=== PATIENT | male | born 1950 | race Caucasian/White ===

== ENCOUNTER 2023-01-18 00:59 | Observation (INO) | payer MEDICARE, OTHER ==
[2023-01-18] VITALS (11 sets, daily range): BP systolic 118–160; BP diastolic 59–72
[~2023-01-18] VITALS: Ht 170.2 cm; Wt 108.5 kg
[2023-01-18] MEDS ORDERED: normal saline 1000ML IV soln IVB ONE (01:25)
[2023-01-18] MEDS ORDERED: normal saline 1000ml 1,000 ML IV ONE (01:25)
[2023-01-18] MEDS ORDERED: nitroGLYCERIN 0.2mg/hour patch TD ONE (01:25)
[2023-01-18] MEDS ORDERED: morphine 4 MG/ML inj SYRINge IV ONE (01:25)
[2023-01-18 01:27] LABS: BASOPHILS # (AUTO) 0.1 X10'3 (0-0.2); BASOPHILS % (AUTO) 0.5 % (0-1); EOSINOPHILS # (AUTO) 0.8 X10'3 (0-0.9); EOSINOPHILS % (AUTO) 5.7 % (0-6); HEMATOCRIT 49.4 % (42.0-52.0); HEMOGLOBIN 16.6 g/dl (14.0-17.9); LYMPHOCYTES # (AUTO) 3.5 X10'3 (1.1-4.8); LYMPHOCYTES % (AUTO) 25.3 % (21-51); MEAN CORPUSCULAR HEMOGLOBIN 30.4 PG (27.0-31.0); MEAN CORPUSCULAR HGB CONC 33.7 g/dL (33.0-36.5); MEAN CORPUSCULAR VOLUME 90.2 FL (78-98); MEAN PLATELET VOLUME 9.8 FL (7.4-10.4); MONOCYTES % (AUTO) 7.1 % (2-12); NEUTROPHILS # (AUTO) 8.5 X10'3 (1.8-7.7); NEUTROPHILS % (AUTO) 61.4 % (42-75); PLATELET COUNT 208 X10'3 (140-440); RED BLOOD COUNT 5.48 X10'6 (4.70-6.10); RED CELL DISTRIBUTION WIDTH 14.8 % (11.5-14.5); WHITE BLOOD COUNT 13.8 X10'3 (4.5-11.0)
[2023-01-18 01:37] LABS: ALANINE AMINOTRANSFERASE 22 U/L (12-78); ALBUMIN 4.2 G/DL (3.4-5.0); ALBUMIN/GLOBULIN RATIO 1.3 (1.1-1.5); ALKALINE PHOSPHATASE 80 IU/L (46-116); ANION GAP 8 (8-16); ASPARTATE AMINO TRANSFERASE 23 U/L (10-37); BILIRUBIN,TOTAL 0.8 MG/DL (0.1-1.0); BLOOD UREA NITROGEN 21 MG/DL (7-18); BUN/CREATININE RATIO 16.3 (5.4-32.0); CALCIUM 9.9 MG/DL (8.5-10.1); CHLORIDE 104 MMOL/L (99-107); CREATININE 1.29 MG/DL (0.60-1.10); GLUCOSE 120 MG/DL (70-104); POTASSIUM 3.8 MMOL/L (3.5-5.1); SODIUM 142 MMOL/L (135-145); TOTAL PROTEIN 7.5 G/DL (6.4-8.2); eGFR 55 ML/MIN
[2023-01-18 01:46] LABS: LIPASE 93 U/L (73-393); MAGNESIUM 2.3 MG/DL (1.5-2.4)
--- NOTE | 2023-01-18 01:56 | NUR ---
Starr ramseysheila in EDM - 01/18/23 at 0209 by RAMÍREZ Rec verbal order from Dr Devin soares go ahead and give the other 2mg of Morphine IVP for pt c/o CP radiating around to mid back 08/16. Additional Morphine 2mg IVP administered with Zach hooker RN as jh
[2023-01-18] MEDS ORDERED: morphine 2 MG/ML inj. syringe IV ONE (02:00)
--- NOTE | 2023-01-18 02:09 | NUR ---
Dr Beltran placed order for additional 2mg of Morphine for c/o Chest Pain 08/16. Dr Beltran placed order for MS 2mg IVP, administered as directed.
[2023-01-18 03:29] LABS: APTT 27 SECONDS (22-32)
[2023-01-18] MEDS ORDERED: potassium Cl 20 mEq SR tablet PO PRN ×2 (05:05)
[2023-01-18] MEDS ORDERED: ondansetron/PF 4mg/2ml inj IV PRN (05:05)
[2023-01-18] MEDS ORDERED: magnesium 4gm in 100ml NS 100 ML IV PRN (05:05)
[2023-01-18] MEDS ORDERED: PERFLUTREN PROTEIN-A MICROSPHR (Optison) 0.22 MG/ML 3ML VIAL IV ONE (05:05)
[2023-01-18] MEDS ORDERED: magnesium hydroxide 30ml (MOM) UD suspension PO PRN (05:05)
[2023-01-18] MEDS ORDERED: mag hydrox/Alum hydrox/simeth 30ml oral suspension PO PRN (05:05)
[2023-01-18] MEDS ORDERED: acetaminophen 325mg tablet PO PRN (05:05)
[2023-01-18] MEDS ORDERED: potassium Cl 40MEQ/1/2NS 520ml 520 ML IV PRN (05:05)
[2023-01-18] MEDS ORDERED: magnesium Cl slow-release 64mg tablet PO PRN (05:05)
[2023-01-18] MEDS ORDERED: morphine 2 MG/ML inj. syringe IV PRN (05:05)
[2023-01-18] MEDS ORDERED: metoprolol tartrate 1mg/ml inj IV PRN (05:10)
[2023-01-18] MEDS ORDERED: regadenoson 0.4mg/5ml syringe IV PRN (05:10)
[2023-01-18] MEDS ORDERED: aminophylline 250mg/10ml inj. IV PRN (05:10)
[2023-01-18] MEDS ORDERED: nitroGLYCERIN 0.4mg SUBLingual tab SL PRN (05:10)
[2023-01-18] MEDS ORDERED: FAMO40TA73 PO (05:40)
[2023-01-18] MEDS ORDERED: APIX5TAB3 PO (05:43)
[2023-01-18] MEDS ORDERED: ATOR40TA72 PO (05:43)
[2023-01-18] MEDS ORDERED: CARV-50 PO (05:43)
[2023-01-18] MEDS ORDERED: HYDR12.55 PO (05:43)
[2023-01-18] MEDS ORDERED: LOSA100T57 PO (05:43)
[2023-01-18] MEDS ORDERED: famotidine 20mg tablet PO PRN (05:50)
[2023-01-18] MEDS: carVEDilol 12.5mg tablet PO SCH ×3 (05:50→20:20)
[2023-01-18 07:27] LABS: POTASSIUM 3.6 MMOL/L (3.5-5.1)
--- NOTE | 2023-01-18 09:06 | NUR ---
pt was about to be taken to stress test at this time, when pt was found sitting up on edge of bed and was hypotensive, bradycardic and diaphoretic. MD Keith was notified and Pt bgl was taken, 123 at this time, upon laying back down, pt HR returned to 70's and B/P improved. verbal order was taken for 500ml bolus of NS at this time and patient was assessed to ensure no nitro patches remained on pt skin.
[2023-01-18] MEDS: docusate sod 100mg capsule PO SCH ×2 (09:11→20:20)
[2023-01-18] MEDS: K and/or MAG REPLACEMENT MC SCH ×2 (09:50→20:20)
--- NOTE | 2023-01-18 09:57 | NUR ---
Ultrasound at bedside.
[2023-01-18] MEDS: apixaban 5mg tablet PO SCH ×2 (10:18→20:20)
[2023-01-18] MEDS: atorvastatin 20mg tablet PO SCH (10:18)
[2023-01-18] MEDS: HYDROchlorothiazide 12.5mg capsule PO SCH ×2 (10:18→20:00)
[2023-01-18] MEDS: losartan 50mg tablet PO SCH (10:24)
--- NOTE | 2023-01-18 10:25 | NUR ---
pt to cardiac stress test at this time.
--- NOTE | 2023-01-18 12:57 | NUR ---
pt just returned to ED rm 3 at this time and placed back on monitor.
[2023-01-19 02:00] VITALS: BP 128/62
[2023-01-19 06:47] LABS: BASOPHILS % (AUTO) 0.3 % (0-1); EOSINOPHILS # (AUTO) 0.3 X10'3 (0-0.9); EOSINOPHILS % (AUTO) 2.4 % (0-6); HEMATOCRIT 42.7 % (42.0-52.0); HEMOGLOBIN 14.4 g/dl (14.0-17.9); LYMPHOCYTES # (AUTO) 2.8 X10'3 (1.1-4.8); LYMPHOCYTES % (AUTO) 24.2 % (21-51); MEAN CORPUSCULAR HEMOGLOBIN 30.2 PG (27.0-31.0); MEAN CORPUSCULAR HGB CONC 33.8 g/dL (33.0-36.5); MEAN CORPUSCULAR VOLUME 89.5 FL (78-98); MEAN PLATELET VOLUME 10.1 FL (7.4-10.4); MONOCYTES # (AUTO) 1.3 X10'3 (0-0.9); MONOCYTES % (AUTO) 10.7 % (2-12); NEUTROPHILS # (AUTO) 7.3 X10'3 (1.8-7.7); NEUTROPHILS % (AUTO) 62.4 % (42-75); PLATELET COUNT 159 X10'3 (140-440); RED BLOOD COUNT 4.77 X10'6 (4.70-6.10); RED CELL DISTRIBUTION WIDTH 14.3 % (11.5-14.5); WHITE BLOOD COUNT 11.7 X10'3 (4.5-11.0)
--- NOTE | 2023-01-19 06:48 | NUR ---
Problems reprioritized. Patient report given, questions answered & plan of care reviewed with Javier GALAN.
[2023-01-19 07:00] VITALS: BP 124/59
[2023-01-19 07:13] LABS: ALANINE AMINOTRANSFERASE 19 U/L (12-78); ALBUMIN 3.1 G/DL (3.4-5.0); ALBUMIN/GLOBULIN RATIO 1.1 (1.1-1.5); ALKALINE PHOSPHATASE 58 IU/L (46-116); ANION GAP 7 (8-16); ASPARTATE AMINO TRANSFERASE 25 U/L (10-37); BILIRUBIN,TOTAL 1.3 MG/DL (0.1-1.0); BLOOD UREA NITROGEN 20 MG/DL (7-18); BUN/CREATININE RATIO 16.3 (5.4-32.0); CALCIUM 8.6 MG/DL (8.5-10.1); CHLORIDE 106 MMOL/L (99-107); CREATININE 1.23 MG/DL (0.60-1.10); GLUCOSE 102 MG/DL (70-104); POTASSIUM 3.4 MMOL/L (3.5-5.1); SODIUM 140 MMOL/L (135-145); TOTAL CARBON DIOXIDE 27.3 MMOL/L (24-32); TOTAL PROTEIN 5.9 G/DL (6.4-8.2); eGFR 58 ML/MIN
[2023-01-19] MEDS: HYDROchlorothiazide 12.5mg capsule PO SCH (09:03)
[2023-01-19] MEDS: apixaban 5mg tablet PO SCH (09:03)
[2023-01-19] MEDS: losartan 50mg tablet PO SCH (09:03)
[2023-01-19] MEDS: atorvastatin 20mg tablet PO SCH (09:04)
[2023-01-19] MEDS: docusate sod 100mg capsule PO SCH (09:04)
[2023-01-19] MEDS: carVEDilol 12.5mg tablet PO SCH (09:04)
[2023-01-19 11:00] VITALS: BP 138/58
[2023-01-19] MEDS ORDERED: HYDR-3972 PO (11:17)
== END 2023-01-19 12:45 | disposition home or self-care (01) ==
LOC: ER 00:59 → ED HOLD 05:08 → INTOOBSV 05:08 → PCU 3S 21:16
PROVIDERS: ADMIT Internal Medicine; ATTEND Family Medicine
DX: R07.89 Other chest pain (principal); I25.119 Atherosclerotic heart disease of native coronary artery with unspecified angina pectoris; I95.1 Orthostatic hypotension; I48.91 Unspecified atrial fibrillation; E78.00 Pure hypercholesterolemia, unspecified; R16.0 Hepatomegaly, not elsewhere classified; E78.5 Hyperlipidemia, unspecified; N17.9 Acute kidney failure, unspecified; I12.9 Hypertensive chronic kidney disease with stage 1 through stage 4 chronic kidney disease, or unspecified chronic kidney disease; N18.9 Chronic kidney disease, unspecified; N28.1 Cyst of kidney, acquired; Z79.01 Long term (current) use of anticoagulants; Z79.899 Other long term (current) drug therapy
CPT/HCPCS: 36415; 71045; 71275; 74174; 76700; 78452; 80053; 82948; 83690; 83735; 83880; 84132; 84484; 85025; 85610; 85730; 87081; 93005; 93017; 93306; 96361; 96374; 99285; A9500; G0378; J2270; J7030; J7040; 96376